=== PATIENT | female | born 1960 | race African-American/Black ===

== ENCOUNTER 2017-01-19 20:27 | Emergency (ER) | payer OTHER ==
[2017-01-19 20:40] VITALS: BP 147/81
--- NOTE | 2017-01-19 21:13 | UC ---
[facility] HPI - HPI Summary HPI Summary: Swelling and pain in right upper gum-with dental pain, blood sugars have been between 200-300 - History of Current Complaint Chief Complaint: UCDentalProblem Stated Complaint: ABCESS IN MOUTH Time Seen by Provider: 01/19/17 21:11 Hx Obtained From: Patient ?: No Onset/Duration: Gradual Onset, Lasting Days - 4, Still Present Severity: Moderate Pain Intensity: 8 Pain Scale Used: 0-10 Numeric Aggravating: Heat, Cold, Chewing Alleviating: Nothing Related History: Previous Dental Care on Same Tooth, Swelling - Allergies/Home Medications Allergies/Adverse Reactions: Allergies Allergy/AdvReac Type Severity Reaction Status Date / Time No Known Allergies Allergy Verified 01/19/17 20:50 Home Medications: Home Medications Insulin Aspart [Novolog] 100 unit SC DAILY 01/19/17 [History Confirmed 01/19/17] Insulin Glargine [Lantus] 100 unit SC DAILY 01/19/17 [History Confirmed 01/19/17 ] PMH/Surg Hx/FS Hx/Imm Hx Previously Healthy: No Endocrine History: Diabetes - Surgical History Surgical History: None Surgery Procedure, Year, and Place: c section x 2 - Family History Known Family History: Positive: None Family History: no reported cardio vascular issues in family lineage - Social History Occupation: Student Lives: With Family Alcohol Use: None Substance Use Type: None Smoking Status (MU): Light Every Day Tobacco Smoker Type: Cigarettes Length of Time of Smoking/Using Tobacco: 35 Have You Smoked in the Last Year: Yes Cessation Counseling: Patient Advised to Stop Review of Systems Constitutional: Negative Skin: Negative Eyes: Negative ENT: Dental Pain Respiratory: Negative Cardiovascular: Negative Gastrointestinal: Negative Genitourinary: Negative Motor: Negative Neurovascular: Negative Musculoskeletal: Negative Neurological: Negative Psychological: Negative All Other Systems Reviewed And Are Negative: Yes Physical Exam Triage Information Reviewed: Yes Appearance: Well-Appearing, No Pain Distress, Well-Nourished Vital Signs: Initial Vital Signs Temp 97.6 F 01/19/17 20:37 Pulse 96 01/19/17 20:37 Resp 18 01/19/17 20:37 BP 147/81 01/19/17 20:37 Pulse Ox 100 01/19/17 20:37 Vital Signs Reviewed: Yes Eye Exam: Normal Eyes: Positive: Conjunctiva Clear ENT Exam: Normal ENT: Positive: Normal ENT inspection, Hearing grossly normal, Pharynx normal, TMs normal. Negative: Nasal congestion, Nasal drainage, Tonsillar swelling, Tonsillar exudate, Trismus, Muffled/hoarse voice Dental Exam: Normal Dental: Positive: Percussion Tenderness @ - right upper gum, Gross Decay/Caries @, Abscess @ - right upper gum Neck exam: Normal Neck: Positive: Supple, Nontender, No Lymphadenopathy Respiratory Exam: Normal Respiratory: Positive: Chest non-tender, Lungs clear, Normal breath sounds, No respiratory distress, No accessory muscle use Cardiovascular Exam: Normal Cardiovascular: Positive: RRR, No Murmur, Pulses Normal, Brisk Capillary Refill Musculoskeletal Exam: Normal Musculoskeletal: Positive: Strength Intact, ROM Intact, No Edema Neurological Exam: Normal Neurological: Positive: Alert, Muscle Tone Normal Psychological Exam: Normal Skin Exam: Normal Dental Complaint Course/Dx - Course Course Of Treatment: amoxicillin, pain med, follow with dentist this week, 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 - Differential Dx/Diagnosis Differential Diagnosis/Dx: Dental Abscess, Gingivitis, Peridontic Disease Provider Diagnoses: Right upper dental abscess, Highblood pressure with our dx of Hypertension, nicotine dependent Discharge - Discharge Plan Condition: Stable Disposition: HOME Prescriptions: Amoxicillin CAP* [Amoxicillin 500 MG CAP*] 500 mg PO TID #30 cap Hydrocodone-Acetaminophen [Hydrocodone/Acetaminophen 5-325 mg] 1 tab PO Q6H #10 tab MDD 4 Ibuprofen TAB* [Motrin TAB* 600 MG] 600 mg PO Q6H PRN #40 tab PRN Reason: Pain Patient Education Materials: Dental Abscess (ED), DASH Eating Plan (ED), Hypertension (ED), Toothache (ED) Referrals: Lg Franco MD [Primary Care Provider] - 2 Weeks () Additional Instructions: Call [facility] In the Morning for an urgent appointment
[2017-01-19] MEDS ORDERED: Amoxicillin CAP* 500 MG PO ONE (21:22)
[2017-01-19] MEDS ORDERED: HYDROcodone/ACETAMIN 5-325 MG* 1 TAB PO ONE (21:23)
== END 2017-01-19 21:46 | disposition home or self-care (01) ==
LOC: UCEAST 20:27
DX: K04.7 Periapical abscess without sinus (principal); I10 Essential (primary) hypertension; E11.9 Type 2 diabetes mellitus without complications; Z79.4 Long term (current) use of insulin; F17.200 Nicotine dependence, unspecified, uncomplicated
CPT/HCPCS: 99212; A9270-GY; G0463

== ENCOUNTER 2017-05-02 19:39 | Emergency (ER) | payer OTHER ==
[2017-05-02 19:47] VITALS: BP 170/103
--- NOTE | 2017-05-02 19:54 | UC ---
Abdominal Pain Female HPI - HPI Summary HPI Summary: 57 YEAR OLD FEMALE PRESENTS WITH COMPLAINS OF SEVERE RUQ PAIN. I WILL SEND HER TO THE ER TO RULE OUT ACUTE CHOLEY. - History of Current Complaint Chief Complaint: UCAbdominalPain Stated Complaint: ABDOMINAL PAIN, AND HEADACHE Time Seen by Provider: 05/02/17 19:51 Hx Obtained From: Patient Onset/Duration: Sudden Onset Severity Initially: Moderate Severity Currently: Moderate Pain Scale Used: 0-10 Numeric - 7 Location: Discrete At: RUQ Radiates: Yes Radiates to: Back Allergies/Adverse Reactions: Allergies Allergy/AdvReac Type Severity Reaction Status Date / Time No Known Allergies Allergy Verified 05/02/17 20:59 Home Medications: Home Medications Gabapentin [Neurontin 800 mg tab] 800 mg PO TID PRN 05/02/17 [History Confirmed 05/02/17] PMH/Surg Hx/FS Hx/Imm Hx Previously Healthy: Yes - Surgical History Surgical History: None Surgery Procedure, Year, and Place: c section x 2, ectopic - Family History Known Family History: Positive: None Family History: no reported cardio vascular issues in family lineage - Social History Alcohol Use: None Substance Use Type: None Smoking Status (MU): Light Every Day Tobacco Smoker Type: Cigarettes Length of Time of Smoking/Using Tobacco: 35 Have You Smoked in the Last Year: Yes - Immunization History Most Recent Influenza Vaccination: none Review of Systems Constitutional: Negative Skin: Negative Eyes: Negative ENT: Negative Respiratory: Negative Cardiovascular: Negative Gastrointestinal: Abdominal Pain - RUQ Genitourinary: Negative Motor: Negative Neurovascular: Negative Musculoskeletal: Negative Neurological: Negative Psychological: Negative All Other Systems Reviewed And Are Negative: Yes Physical Exam Triage Information Reviewed: Yes Vital Signs: Initial Vital Signs Temp 36.7 C 05/02/17 19:41 Pulse 72 05/02/17 19:41 Resp 16 05/02/17 19:41 BP 170/103 05/02/17 19:41 Pulse Ox 100 05/02/17 19:41 Vital Signs Reviewed: Yes Eye Exam: Normal ENT Exam: Normal Dental Exam: Normal Neck exam: Normal Neck: Positive: 1 Respiratory Exam: Normal Cardiovascular Exam: Normal Abdomen Description: Positive: Other: - RUQ PAIN SAPP (+) Musculoskeletal Exam: Normal Neurological Exam: Normal Psychological Exam: Normal Skin Exam: Normal Abd Pain Female Course/Dx - Differential Dx/Diagnosis Provider Diagnoses: RUQ PAIN Discharge - Discharge Plan Condition: Stable Disposition: HOME Patient Education Materials: Cholecystitis (ED), Acute Nausea and Vomiting (ED) Referrals: Lg Franco MD [Primary Care Provider] - Additional Instructions: PATIENT SUGGESTED TO GO TO ER FOR SEVERE RUQ PAIN.
== END 2017-05-02 20:28 | disposition home or self-care (01) ==
LOC: UCEAST 19:39
DX: R10.11 Right upper quadrant pain (principal); R51 Headache; F17.210 Nicotine dependence, cigarettes, uncomplicated
CPT/HCPCS: 99212; G0463

== ENCOUNTER 2017-05-02 20:51 | Emergency (ER) | payer OTHER ==
[2017-05-02 22:42] LABS: Hematocrit 44 % (35-47); Hemoglobin 14.5 g/dl (12.0-16.0); Mean Corpuscular HGB Conc 33 g/dl (31-36); Mean Corpuscular Hemoglobin 30 pg (27-31); Mean Corpuscular Volume 90 fL (80-97); Mean Platelet Volume 9 um3 (7.4-10.4); Red Blood Count 4.84 10^6/ul (4.0-5.4); Red Cell Distribution Width 14 % (10.5-15); White Blood Count 12.4 10^3/ul (3.5-10.8)
[2017-05-02 22:48] LABS: Urine Bilirubin Negative (Negative); Urine Glucose Negative (Negative); Urine Nitrite Negative (Negative)
[2017-05-02 22:58] LABS: Albumin 3.9 g/dL (3.2-5.2); BUN/Creatinine Ratio 10.9 (8-20); C Reactive Protein 1.23 mg/L (< 5.00); Calcium 9.3 mg/dL (8.6-10.3); EGFR African American 81.5 (>60); EGFR Non-African American 63.4 (>60); Potassium 3.2 mmol/L (3.5-5.0); Total Bilirubin 0.4 mg/dL (0.2-1.0); Total Protein 6.9 g/dL (6.4-8.9)
[2017-05-02] MEDS ORDERED: Ondansetron INJ* 2 MG/ML VIAL IV ONE (23:31)
[2017-05-02] MEDS ORDERED: Morphine INJ* 4 MG/ML 1 ML CARPUJECT IV ONE (23:31)
[2017-05-03] MEDS ORDERED: Iodixanol* (CONTRAST) 320 MG/ML 100 ML SDV IV ONE (01:52)
[2017-05-03] MEDS ORDERED: Ondansetron INJ* 2 MG/ML VIAL IV ONE (03:19)
[2017-05-03] MEDS ORDERED: Lidocaine 2% VISCOUS* 15 ML UDC PO ONE (05:39)
[2017-05-03] MEDS ORDERED: oxyCODONE/Acetamin 5/325 MG* TAB PO ONE (05:39)
[2017-05-03] MEDS ORDERED: Al Hydrox/Mg Hydrox/Simet LIQ* 30 ML UDC PO ONE (05:39)
[2017-05-03 05:54] VITALS: BP 132/69
--- NOTE | 2017-05-03 07:36 | RAD ---
Indication: Right upper quadrant pain. Real-time sonography of the right upper quadrant was performed. The liver is normal in size measuring up to 13.8 cm in length. There are no focal lesions or intrahepatic duct dilatation noted. The gallbladder demonstrates no gallstones, pericholecystic fluid or wall thickening. The common duct measures 4.4 mm. RIGHT kidney measures 12.1 x 5.5 x 4.6 cm. No hydronephrosis is noted. The visualized pancreas is otherwise unremarkable. IMPRESSION: No evidence of cholelithiasis or biliary duct dilatation.
--- NOTE | 2017-05-03 08:28 | RAD ---
Indication: Right upper quadrant pain. Contrast: Administered 108.1 ml of VISAPAQUE 320 mg/ml CT of the abdomen and pelvis was performed after oral and IV contrast administration. Coronal and sagittal reconstructed images were obtained. Lung bases demonstrate no pleural fluid, nodules or masses. Heart is normal size without evidence of pericardial effusion. Liver is normal in size. No focal lesions or intrahepatic duct dilatation is noted. The gallbladder demonstrates no calcified gallstones. No pericholecystic fluid or wall thickening is identified. The spleen is normal in size. The pancreas demonstrates no mass or pancreatic duct dilatation. The common duct is not dilated. No adrenal lesions are noted. The kidneys demonstrate symmetric nephrograms without focal lesions. No hydronephrosis is noted. No retroperitoneal lymphadenopathy is noted. Aorta and inferior vena cava are unremarkable. CT of the pelvis demonstrates no retroperitoneal or pelvic lymphadenopathy. The urinary bladder is unremarkable. No hernias are noted. There is some fluid noted in the right colon and transverse colon. No other abnormally dilated loops of bowel are noted. Small periumbilical hernia containing fat is noted. The uterus and ovaries are unremarkable. No free fluid is identified. IMPRESSION: No abnormal masses or fluid collections are noted. Fluid is noted in the right colon and transverse colon. No other masses or fluid collections are noted. Small periumbilical hernia containing omentum.
--- NOTE | 2017-05-16 15:43 | ED ---
Meena Patel Kyle, scribed for William Rivera MD on 05/02/17 at 2224 . Abdominal Pain/Female - HPI Summary HPI Summary: This is a 57 yo female presenting to the ED w/ c/o RUQ abdominal pain that has been ongoing for the past month. She reports that it became acutely worse this morning around 0300. She notes that the pain is much worse after eating. Today she tried sme peanut butter cracker sandwiches and strawberries, both which caused significant pain. She has used Callie-seltzer for the symptoms which seems to work quite while for the pain. The pain does not radiate. - History of Current Complaint Chief Complaint: EDAbdPain Stated Complaint: ABD PAIN Time Seen by Provider: 05/02/17 22:11 Hx Obtained From: Patient Onset/Duration: Gradual Onset - 1 month Timing: Constant Severity Initially: Severe Severity Currently: Severe Pain Intensity: 10 Pain Scale Used: 0-10 Numeric Location: Discrete At: RUQ Radiates: No Aggravating Factor(s): Food Alleviating Factor(s): Other: - Callie [place] Associated Signs and Symptoms: Positive: Nausea, Vomiting Allergies/Adverse Reactions: Allergies Allergy/AdvReac Type Severity Reaction Status Date / Time No Known Allergies Allergy Verified 05/02/17 20:59 PMH/Surg Hx/FS Hx/Imm Hx Endocrine/Hematology History: Reports: Hx Diabetes Denies: Hx Thyroid Disease Cardiovascular History: Reports: Hx Hypertension Respiratory History: Denies: Hx Asthma, Hx Chronic Obstructive Pulmonary Disease (COPD) GI History: Denies: Hx Ulcer - Surgical History Surgery Procedure, Year, and Place: c section x 2, ectopic Infectious Disease History: Reports: Hx Tuberculosis Denies: Hx Clostridium Difficile, Hx Hepatitis, Hx Human Immunodeficiency Virus (HIV), Hx of Known/Suspected MRSA, Hx Shingles, Hx Known/Suspected VRE, Hx Known/Suspected VRSA, History Other Infectious Disease, Traveled Outside the [place] in Last 30 Days - Family History Known Family History: Positive: Other - Gall bladder disease - Mother Negative: Cardiac Disease Family History: no reported cardio vascular issues in family lineage - Social History Alcohol Use: None Substance Use Type: Reports: None Smoking Status (MU): Light Every Day Tobacco Smoker Type: Cigarettes Length of Time of Smoking/Using Tobacco: 35 Have You Smoked in the Last Year: Yes Review of Systems Negative: Fever, Chills Negative: Erythema Negative: Sore Throat Negative: Chest Pain Negative: Shortness Of Breath, Cough Positive: Abdominal Pain, Vomiting, Nausea Negative: dysuria, hematuria Negative: Myalgia, Edema Negative: Rash Neurological: Other - NEGATIVE: dizziness All Other Systems Reviewed And Are Negative: Yes Physical Exam - Summary Physical Exam Summary: Constitutional: Well-developed, Well-nourished, Alert. (-) Distressed Skin: Warm, Dry HENT: Normocephalic; Atraumatic Eyes: Conjunctiva normal Neck: Musculoskeletal ROM normal neck. (-) JVD, (-) Stridor, (-) Tracheal deviation Cardio: Rhythm regular, rate normal, Heart sounds normal; Intact distal pulses; The pedal pulses are 2+ and symmetric. Radial pulses are 2+ and symmetric. (-) Murmur Pulmonary/Chest wall: Effort normal. (-) Respiratory distress, (-) Wheezes, (-) Rales Abd: Soft, (-). Exquisite tenderness to the RUQ. Distension, (-) Guarding, (-) Rebound Musculoskeletal: (-) Edema Lymph: (-) Cervical adenopathy Neuro: Alert, Oriented x3 Psych: Mood and affect Normal Triage Information Reviewed: Yes Vital Signs On Initial Exam: Initial Vitals Temp Pulse Resp BP Pulse Ox 97.0 F 88 16 179/93 100 05/02/17 20:55 05/02/17 20:55 05/02/17 20:55 05/02/17 20:55 05/02/17 20:55 Vital Signs Reviewed: Yes Diagnostics - Vital Signs Vital Signs Temp Pulse Resp BP Pulse Ox 05/02/17 20:55 97.0 F 88 16 179/93 100 - Laboratory Result Diagrams: 05/02/17 22:30 05/02/17 22:30 Lab Statement: Any lab studies that have been ordered have been reviewed, and results considered in the medical decision making process. - CT CT Abd/Pel CT Interpretation: No Acute Changes - Possible diarrheal illness without colonic wall thickening. ED physician reviewed radiology report and agrees. CT Interpretation Completed By: Radiologist - Ultrasound No standard instances Ultrasound Interpretation: No Acute Changes - Abdomen US: Normal exam. ED physician reviewed radiology report and agrees. Ultrasound Interpretation Completed By: Radiologist - EKG 0205 Cardiac Rate: NL - 64 bpm EKG Rhythm: Sinus Rhythm EKG Interpretation: No STEMI Re-Evaluation - Re-Evaluation First Eval Re-Evaluation Time: 04:45 Comment: said that the pt has been using a lot of Ibuprofen lately. She still has epigastric and RUQ discomfort. Second Eval Re-Evaluation Time: 06:33 Change: Improved Comment: The pt is feeling better and would like to go home as the GI cocktail significantly improved her symptoms. She additionally reported diarrhea. Abdominal Pain Fem Course/Dx - Course Course Of Treatment: This is a 57 yo female presenting to the ED w/ c/o RUQ abdominal pain that has been ongoing for the past month, becoming acutely worse this morning around 0300. She notes that the pain is much worse after eating. Today she tried some peanut butter cracker sandwiches and strawberries, both which caused significant pain. She has used Callie-seltzer for the symptoms which seems to work quite while for the pain. The pain does not radiate. CT Abd/Pel and Abdominal US reveal no acute findings. EKG is sinus rhythm with no STEMI. In the ED course, pt was given Maalox, Xyloocaine, Morphine, Zofran and Percocet 3/325 which improved sx. She will be D/C to home with Dx of gastroenteritis with Rx for Percocet 5/325 and Magic Mouth and a follow up with her PCP. She understands and agrees. Elevated BP noted and advised to f/u with PCP. - Diagnoses Provider Diagnoses: Gastroenteritis Discharge - Discharge Plan Condition: Stable Disposition: HOME Prescriptions: Magic Mouth Was-JIM/MAAL/LIDO* 5 ml SWISH SWAL QID #100 ml Patient Education Materials: Gastroenteritis (ED) Referrals: Lg Franco MD [Primary Care Provider] - 3 Days Additional Instructions: RETURN TO THE EMERGENCY DEPARTMENT FOR CHANGING OR WORSENING SYMPTOMS. The documentation as recorded by the Meean rubio Kyle accurately reflects the service I personally performed and the decisions made by me, William Rivera MD.
== END 2017-05-03 06:47 | disposition home or self-care (01) ==
LOC: ED 20:51
DX: K52.9 Noninfective gastroenteritis and colitis, unspecified (principal); F17.210 Nicotine dependence, cigarettes, uncomplicated; E11.9 Type 2 diabetes mellitus without complications; I10 Essential (primary) hypertension; K42.9 Umbilical hernia without obstruction or gangrene
CPT/HCPCS: 36415; 74177; 76705; 80053; 81003; 83605; 83690; 84484; 85025; 86140; 93005; 96374; 96375; 96376; 99283; A9270-GY; J2270; J2405; Q9967

== ENCOUNTER 2017-05-22 21:34 | Emergency (ER) | payer OTHER ==
[2017-05-23 00:40] LABS: Hematocrit 43 % (35-47); Hemoglobin 14.4 g/dl (12.0-16.0); Mean Corpuscular HGB Conc 33 g/dl (31-36); Mean Corpuscular Hemoglobin 30 pg (27-31); Mean Corpuscular Volume 90 fL (80-97); Mean Platelet Volume 9 um3 (7.4-10.4); Red Cell Distribution Width 13 % (10.5-15); White Blood Count 10.6 10^3/ul (3.5-10.8)
[2017-05-23 00:48] LABS: Urine Bilirubin Negative (Negative); Urine Glucose 3+(>=500 mg/dL) (Negative); Urine Nitrite Negative (Negative)
[2017-05-23] MEDS ORDERED: Lidocaine 2% VISCOUS* 15 ML UDC PO ONE (00:52)
[2017-05-23] MEDS ORDERED: Al Hydrox/Mg Hydrox/Simet LIQ* 30 ML UDC PO ONE (00:52)
[2017-05-23 00:53] LABS: Albumin 3.6 g/dL (3.2-5.2); BUN/Creatinine Ratio 11.9 (8-20); Calcium 8.5 mg/dL (8.6-10.3); EGFR African American 90.5 (>60); EGFR Non-African American 70.4 (>60); Globulin 2.5 g/dL (2-4); Potassium 3.8 mmol/L (3.5-5.0); Total Bilirubin 0.4 mg/dL (0.2-1.0); Total Protein 6.1 g/dL (6.4-8.9)
[2017-05-23] MEDS ORDERED: oxyCODONE/Acetamin 5/325 MG* TAB PO ONE (02:09)
[2017-05-23] MEDS ORDERED: Ondansetron ODT TAB* 4 MG PO ONE (02:31)
[2017-05-23 03:06] VITALS: BP 168/88
--- NOTE | 2017-05-23 14:33 | ED ---
Edinson Patel Rebecca, scribed for Rylee Henry MD on 05/22/17 at 2344 . Abdominal Pain/Female - HPI Summary HPI Summary: Pt is a 57 y/o F who presents to ED c/o abdominal pain for about 1 month ago, starting on 05/02, and worsening tonight. Pain is in the RUQ and described as severe, ranked 10/10. Sx aggravated and alleviated by nothing. Additionally c/o nausea and R flank pain. Denies dysuria, blood in stool and vomiting. Both abdominal pain and flank pain worsened at the same time. BMs have been yellow. Pt was evaluated by [facility] on 05/02 where she was given a GI cocktail which significantly improved sx and she was D/C to home with Dx of gastroenteritis. Has an appointment with GI on 05/29 (6 days from now). Takes Gabapentin 300 mg TID. No PMHx kidney stones. - History of Current Complaint Chief Complaint: EDAbdPain Stated Complaint: NAUSEA/RT SIDE BACK,ABD PAIN Time Seen by Provider: 05/22/17 23:35 Hx Obtained From: Patient Onset/Duration: Still Present, Worse Since - Tonight Severity Currently: Severe Pain Intensity: 10 Pain Scale Used: 0-10 Numeric Location: Discrete At: RUQ Aggravating Factor(s): Nothing Alleviating Factor(s): Nothing Associated Signs and Symptoms: Positive: Nausea, Other: - R flank pain. Negative: Blood in Stool, Urinary Symptoms, Vomiting Allergies/Adverse Reactions: Allergies Allergy/AdvReac Type Severity Reaction Status Date / Time No Known Allergies Allergy Verified 05/02/17 20:59 PMH/Surg Hx/FS Hx/Imm Hx Endocrine/Hematology History: Reports: Hx Diabetes Denies: Hx Thyroid Disease Cardiovascular History: Reports: Hx Hypertension Respiratory History: Denies: Hx Asthma, Hx Chronic Obstructive Pulmonary Disease (COPD) GI History: Denies: Hx Ulcer History: Denies: Hx Kidney Stones, Hx Renal Disease - Surgical History Surgery Procedure, Year, and Place: c section x 2, ectopic Infectious Disease History: No Infectious Disease History: Reports: Hx Tuberculosis Denies: Hx Clostridium Difficile, Hx Hepatitis, Hx Human Immunodeficiency Virus (HIV), Hx of Known/Suspected MRSA, Hx Shingles, Hx Known/Suspected VRE, Hx Known/Suspected VRSA, History Other Infectious Disease, Traveled Outside the [place] in Last 30 Days - Family History Known Family History: Positive: Other - Gall bladder disease - Mother Negative: Cardiac Disease Family History: no reported cardio vascular issues in family lineage - Social History Alcohol Use: None Substance Use Type: Reports: None Smoking Status (MU): Light Every Day Tobacco Smoker Type: Cigarettes Length of Time of Smoking/Using Tobacco: 35 Have You Smoked in the Last Year: Yes Review of Systems Positive: Abdominal Pain - RUQ, Nausea. Negative: Vomiting Positive: flank pain - Right flank pain, other - NEGATIVE: Blood in stool. Negative: dysuria All Other Systems Reviewed And Are Negative: Yes Physical Exam Triage Information Reviewed: Yes Vital Signs On Initial Exam: Initial Vitals Temp Pulse Resp BP Pulse Ox 97.4 F 95 14 187/96 100 05/22/17 21:41 05/22/17 21:41 05/22/17 21:41 05/22/17 21:41 05/22/17 21:41 Vital Signs Reviewed: Yes Appearance: Positive: Well-Appearing, Well-Nourished, Pain Distress Skin: Positive: Warm, Skin Color Reflects Adequate Perfusion Head/Face: Positive: Normal Head/Face Inspection Eyes: Positive: Conjunctiva Clear ENT: Positive: Normal ENT inspection Neck: Positive: Supple Respiratory/Lung Sounds: Positive: Clear to Auscultation, Breath Sounds Present , Other - NO respiratory distress Cardiovascular: Positive: RRR, Pulses are Symmetrical in both Upper and Lower Extremities, Other - Brisk capillary refill. Negative: Murmur Abdomen Description: Positive: No Organomegaly, Soft, CVA Tenderness (R), Other : - RUQ and R flank tenderness. Negative: Bruit, Distended, Guarding, Hepatomegaly, McBurney's Point Tenderness, Peritoneal Signs, Pulsatile Mass, Splenomegaly Bowel Sounds: Positive: Present Musculoskeletal: Positive: Strength/ROM Intact Neurological: Positive: Sensory/Motor Intact, Alert, Oriented to Person Place, Time, Facial Symmetry, Speech Normal Psychiatric: Positive: Normal Diagnostics - Vital Signs Vital Signs Temp Pulse Resp BP Pulse Ox 05/22/17 23:30 76 187/102 99 05/22/17 23:00 75 175/110 100 05/22/17 22:37 81 100 05/22/17 22:35 196/111 05/22/17 21:41 97.4 F 95 14 187/96 100 - Laboratory Lab Results: Lab Results 05/22/17 05/23/17 05/23/17 Range/Units 23:35 00:00 00:00 WBC 10.6 (3.5-10.8) 10^3/ul RBC 4.80 (4.0-5.4) 10^6/ul Hgb 14.4 (12.0-16.0) g/dl Hct 43 (35-47) % MCV 90 (80-97) fL MCH 30 (27-31) pg MCHC 33 (31-36) g/dl RDW 13 (10.5-15) % Plt Count 300 (150-450) 10^3/ul MPV 9 (7.4-10.4) um3 Neut % (Auto) 60.6 (38-83) % Lymph % (Auto) 33.5 (25-47) % Garza % (Auto) 5.2 (1-9) % Eos % (Auto) 0.4 (0-6) % Baso % (Auto) 0.3 (0-2) % Absolute Neuts (auto) 6.4 (1.5-7.7) 10^3/ul Absolute Lymphs (auto) 3.6 (1.0-4.8) 10^3/ul Absolute Monos (auto) 0.6 (0-0.8) 10^3/ul Absolute Eos (auto) 0 (0-0.6) 10^3/ul Absolute Basos (auto) 0 (0-0.2) 10^3/ul Absolute Nucleated RBC 0.02 10^3/ul Nucleated RBC % 0.2 Sodium 137 (133-145) mmol/L Potassium 3.8 (3.5-5.0) mmol/L Chloride 103 (101-111) mmol/L Carbon Dioxide 27 (22-32) mmol/L Anion Gap 7 (2-11) mmol/L BUN 10 (6-24) mg/dL Creatinine 0.84 (0.51-0.95) mg/dL Est GFR ( Amer) 90.5 (>60) Est GFR (Non-Af Amer) 70.4 (>60) BUN/Creatinine Ratio 11.9 (8-20) Glucose 261 H (70-100) mg/dL Lactic Acid (0.5-2.0) mmol/L Calcium 8.5 L (8.6-10.3) mg/dL Total Bilirubin 0.40 (0.2-1.0) mg/dL AST 14 (13-39) U/L ALT 13 (7-52) U/L Alkaline Phosphatase 100 (34-104) U/L Troponin I 0.00 (<0.04) ng/mL C-React Prot High Sens 1.11 mg/L Total Protein 6.1 L (6.4-8.9) g/dL Albumin 3.6 (3.2-5.2) g/dL Globulin 2.5 (2-4) g/dL Albumin/Globulin Ratio 1.4 (1-3) Amylase 53 (29-103) U/L Lipase 89 H (11.0-82.0) U/L Urine Color Urine Appearance Urine pH (5-9) Ur Specific [place] (1.010-1.030) Urine Protein (Negative) Urine Ketones (Negative) Urine Blood (Negative) Urine Nitrate (Negative) Urine Bilirubin (Negative) Urine Urobilinogen (Negative) Ur Leukocyte Esterase (Negative) Urine Glucose (Negative) 05/23/17 05/23/17 Range/Units 00:00 00:00 WBC (3.5-10.8) 10^3/ul RBC (4.0-5.4) 10^6/ul Hgb (12.0-16.0) g/dl Hct (35-47) % MCV (80-97) fL MCH (27-31) pg MCHC (31-36) g/dl RDW (10.5-15) % Plt Count (150-450) 10^3/ul MPV (7.4-10.4) um3 Neut % (Auto) (38-83) % Lymph % (Auto) (25-47) % Garza % (Auto) (1-9) % Eos % (Auto) (0-6) % Baso % (Auto) (0-2) % Absolute Neuts (auto) (1.5-7.7) 10^3/ul Absolute Lymphs (auto) (1.0-4.8) 10^3/ul Absolute Monos (auto) (0-0.8) 10^3/ul Absolute Eos (auto) (0-0.6) 10^3/ul Absolute Basos (auto) (0-0.2) 10^3/ul Absolute Nucleated RBC 10^3/ul Nucleated RBC % Sodium (133-145) mmol/L Potassium (3.5-5.0) mmol/L Chloride (101-111) mmol/L Carbon Dioxide (22-32) mmol/L Anion Gap (2-11) mmol/L BUN (6-24) mg/dL Creatinine (0.51-0.95) mg/dL Est GFR ( Amer) (>60) Est GFR (Non-Af Amer) (>60) BUN/Creatinine Ratio (8-20) Glucose (70-100) mg/dL Lactic Acid 1.2 (0.5-2.0) mmol/L Calcium (8.6-10.3) mg/dL Total Bilirubin (0.2-1.0) mg/dL AST (13-39) U/L ALT (7-52) U/L Alkaline Phosphatase (34-104) U/L Troponin I (<0.04) ng/mL C-React Prot High Sens mg/L Total Protein (6.4-8.9) g/dL Albumin (3.2-5.2) g/dL Globulin (2-4) g/dL Albumin/Globulin Ratio (1-3) Amylase (29-103) U/L Lipase (11.0-82.0) U/L Urine Color Yellow Urine Appearance Clear Urine pH 7.0 (5-9) Ur Specific [place] 1.025 (1.010-1.030) Urine Protein Negative (Negative) Urine Ketones Negative (Negative) Urine Blood Negative (Negative) Urine Nitrate Negative (Negative) Urine Bilirubin Negative (Negative) Urine Urobilinogen Negative (Negative) Ur Leukocyte Esterase Negative (Negative) Urine Glucose 3+(>=500 mg/dl) H (Negative) Result Diagrams: 05/23/17 00:00 05/23/17 00:00 Lab Statement: Any lab studies that have been ordered have been reviewed, and results considered in the medical decision making process. Re-Evaluation - Re-Evaluation First Eval Re-Evaluation Time: 02:01 Change: Improved Comment: Initially, the GI cocktail improved sx though upon using thebathroom, the pain has now begun to return. Abdominal Pain Fem Course/Dx - Course Course Of Treatment: Pt is a 57 y/o F who presents to ED c/o abdominal pain for about 1 month ago, starting on 05/02, and worsening tonight. Pain is in the RUQ and described as severe, ranked 10/10. Sx aggravated and alleviated by nothing. Additionally c/o nausea and R flank pain. Denies dysuria, blood in stool and vomiting. Both abdominal pain and flank pain worsened at the same time. BMs have been yellow. Pt was evaluated by [facility] ED on 05/02 where she was given a GI cocktail which significantly improved sx and she was D/C to home with Dx of gastroenteritis. Has an appointment with GI on 05/29 (6 days from now). Takes Gabapentin 300 mg TID. No PMHx kidney stones. UA negative for UTI. Lipase of 89. In the ED course, pt received a GI cocktail and 1 Percocet which improved sx. She will be D/C to home with Dx of gastritis and RUQ abdominal pain with Rx for Zofran and percocet 5/325 and a follow up with her PCP. She understands and agrees. High BP noted. Pt medications reviewed this visit. - Diagnoses Provider Diagnoses: High BP under poor control, RUQ abdominal pain, Gastritis Discharge - Discharge Plan Condition: Stable Disposition: HOME Prescriptions: Ondansetron ODT TAB* [Zofran 4 MG Odt TAB*] 4 mg PO Q8H PRN #10 tab.odt PRN Reason: Nausea/Vomiting oxyCODONE/Acetamin 5/325 MG* [Percocet 5/325 TAB*] 1 tab PO Q6H PRN #8 tab MDD 4 PRN Reason: Pain - Moderate To Severe Patient Education Materials: Gastritis (ED), Acute Abdominal Pain (ED) Forms: *School Release Referrals: Lg Franco MD [Primary Care Provider] - 3 Days Additional Instructions: You were given the GI cocktail and 1 Percocet tonight. Your lipase was slightly elevated at 89. Normal is 82. Keep your appointment with GI on May 29. Return to the ED for any returning or worsening symptoms. The documentation as recorded by the Edinson rubio Rebecca accurately reflects the service I personally performed and the decisions made by , Rylee Henry MD.
== END 2017-05-23 02:50 | disposition home or self-care (01) ==
LOC: ED 21:34
DX: R10.11 Right upper quadrant pain (principal); K29.70 Gastritis, unspecified, without bleeding; I10 Essential (primary) hypertension; Z87.442 Personal history of urinary calculi; F17.210 Nicotine dependence, cigarettes, uncomplicated; E11.9 Type 2 diabetes mellitus without complications
CPT/HCPCS: 36415; 80053; 81003; 82150; 83605; 83690; 84484; 85025; 86141; 99284; A9270-GY

== ENCOUNTER 2022-05-15 14:32 | Observation (INO) ==
[2022-05-15] MEDS ORDERED: Propofol 10 MG/ML 20 ML BTL IV PUSH ONE (15:05)
[2022-05-15] MEDS ORDERED: Dextrose 50% Syringe 50 ml 25 GM/50 ML SYRINGE IV PUSH PRN ×2 (15:40→19:27)
[2022-05-15 17:55] LABS: ABS Basophils 0.1 10^3/ul (0-0.2); ABS Lymphocytes 1.9 10^3/ul (1.0-4.8); ABS Monocytes 0.5 10^3/ul (0-0.8); ABS Neutrophils 7.5 10^3/ul (1.5-7.7); Eosinophil % 0.1 %; Hematocrit 45 % (35-47); Hemoglobin 14.8 g/dL (12.0-16.0); Lymphocyte % 18.9 %; Mean Corpuscular HGB Conc 33 g/dL (31-36); Mean Corpuscular Hemoglobin 30 pg (27-31); Mean Corpuscular Volume 92 fL (80-97); Mean Platelet Volume 8.4 fL (7.4-10.4); Platelet Count 327 10^3/uL (150-450); Red Blood Count 4.94 10^6 /uL (3.70-4.87); Red Cell Distribution Width 15 % (10-15); White Blood Count 9.9 10^3/uL (3.5-10.8)
[2022-05-15 18:13] LABS: INR 0.97 (0.89-1.11)
[2022-05-15 18:26] LABS: Albumin 4.2 g/dL (3.2-5.2); Albumin/Globulin Ratio 1.4 (1-3); Calcium 9.3 mg/dL (8.6-10.3); Globulin 3.1 g/dL (2-4); Total Bilirubin 0.4 mg/dL (0.2-1.0); Total Protein 7.3 g/dL (6.4-8.9); eGFR CKD-EPI 59.5 (>60)
[2022-05-15 19:24] LABS: High Sensitivity Troponin 1 Hr 8 pg/mL (<15)
[2022-05-15] MEDS ORDERED: Heparin 5000 UNITS/ML 1 mL VIAL SUBCUT ONE (19:25)
[2022-05-15] MEDS ORDERED: Morphine 4 MG/ML VIAL (1 ml) IV ONE (19:51)
[2022-05-15] MEDS ORDERED: Morphine 2 MG/ML SYRINGE IV PRN (23:22)
[2022-05-16] MEDS ORDERED: Magnesium Hydroxide LIQ 30 ML UDC PO PRN (00:22)
[2022-05-16] MEDS ORDERED: Senna TAB 8.6 mg TAB PO PRN (00:22)
[2022-05-16 01:56] LABS: Urine Appearance Clear; Urine Bilirubin Negative (Negative); Urine Blood Negative (Negative); Urine Color Yellow; Urine Glucose 3+(>=500 mg/dL) (Negative); Urine Ketones Trace (Negative); Urine Nitrite Negative (Negative); Urine Protein Negative (Negative); Urine Specific Gravity 1.028 (1.002-1.030); Urine Urobilinogen Negative (Negative)
[2022-05-16 06:16] LABS: ABS Lymphocytes 2.5 10^3/ul (1.0-4.8); ABS Monocytes 0.5 10^3/ul (0-0.8); ABS Neutrophils 5.6 10^3/ul (1.5-7.7); Eosinophil % 0.4 %; Hematocrit 42 % (35-47); Hemoglobin 13.3 g/dL (12.0-16.0); Lymphocyte % 28.9 %; Mean Corpuscular HGB Conc 32 g/dL (31-36); Mean Corpuscular Hemoglobin 30 pg (27-31); Mean Corpuscular Volume 93 fL (80-97); Mean Platelet Volume 8.5 fL (7.4-10.4); Nucleated Red Blood Cells % 0.2; Platelet Count 291 10^3/uL (150-450); Red Blood Count 4.46 10^6 /uL (3.70-4.87); Red Cell Distribution Width 15 % (10-15); White Blood Count 8.7 10^3/uL (3.5-10.8)
[2022-05-16 06:33] LABS: Potassium 4.3 mmol/L (3.5-5.0); eGFR CKD-EPI 55.1 (>60)
[2022-05-16] MEDS ORDERED: Insulin GLARGINE 100 un/ml 10 ml VIAL SUBCUT SCH ×2 (09:00→10:00)
[2022-05-16] MEDS ORDERED: ceFAZolin 2 GM PREMIX 2 GM/50 ML BAG ONE (12:59)
[2022-05-16] MEDS ORDERED: ceFAZolin 2 GM in NS PREMIX 2 GM/100 ML BAG IVPB ONE (13:00)
[2022-05-16] MEDS ORDERED: Dexamethasone IV 4 MG/ML VIAL 1 ml VIAL ONE ×2 (13:18→16:00)
[2022-05-16] MEDS ORDERED: Midazolam 2 mg/2 ml VIAL 1 mg/ml 2 ml VIAL (2 mg) ONE (13:18)
[2022-05-16] MEDS ORDERED: Lidocaine 2% PF 5 ML VIAL ONE ×2 (13:19→13:20)
[2022-05-16] MEDS ORDERED: Bupivacaine 0.5% SDV PF 30ML VIAL ONE (13:19)
[2022-05-16] MEDS ORDERED: fentaNYL 100 mcg/2 ml 50 MCG/ML VIAL ONE (13:20)
[2022-05-16] MEDS ORDERED: Propofol 10 MG/ML 20 ML BTL ONE (13:20)
[2022-05-16] MEDS ORDERED: ROPIVACAINE 5 MG/ML 30 ML BTL (0.5%) ONE (15:13)
[2022-05-16] MEDS ORDERED: Glycopyrrolate IV 0.2 MG/ML 1 ML VIAL ONE (16:00)
[2022-05-16] MEDS ORDERED: Ondansetron 4 mg VIAL 2 MG/ML 2 ml VIAL ONE (16:00)
[2022-05-16] MEDS ORDERED: Phenylephrine IV 10 MG/ML 1 ml VIAL ONE (16:06)
[2022-05-16] MEDS ORDERED: Dextrose 50% Syringe 50 ml 25 GM/50 ML SYRINGE IV PUSH PRN (21:17)
[2022-05-17] MEDS: ceFAZolin 1 GM X 3 DOSES POST-OP Q8H (AddVan) IVPB SCH ×3 (00:30→15:56)
[2022-05-17] MEDS ORDERED: Dextrose 50% Syringe 50 ml 25 GM/50 ML SYRINGE IV PUSH PRN (01:17)
[2022-05-17 06:27] LABS: Calcium 9.3 mg/dL (8.6-10.3); Potassium 4.7 mmol/L (3.5-5.0); eGFR CKD-EPI 52.9 (>60)
[2022-05-17] MEDS ORDERED: Aspirin EC 325 mg TAB.EC PO SCH (09:00)
[2022-05-17] MEDS ORDERED: Insulin GLARGINE 100 un/ml 10 ml VIAL SUBCUT SCH (09:00)
[2022-05-17 11:49] VITALS: BP 152/71
== END 2022-05-17 16:40 | disposition home or self-care (01) ==
LOC: EDHOLD 14:32 → ED 14:32 → SUATTDRO 19:21 → SSU 22:26
PROVIDERS: ADMIT Internal Medicine; ATTEND Internal Medicine